=== PATIENT | female | born 2000 | race Caucasian/White ===

== ENCOUNTER 2020-12-21 11:04 | Emergency (ER) | payer OTHER ==
[~2020-12-21 11:04] MED LIST: MUCINEX 600MG600 MG PO; TESSALON PERLE100 MG PO
[2020-12-21 13:56] LABS: BASOPHIL 0.8 % (0-2); EOSINOPHIL 1.4 % (0-5); HCT 40.9 % (37.0-47.0); MCH 26.9 pg (25.0-31.0); MCHC 31.8 g/dL (32.0-36.0); MCV 84.5 fL (78.0-100.0); MONOCYTE 7.7 % (0-12); MPV 9.9 fL (6.0-9.5); NEUTROPHIL 58.8 % (41-80); NRBC 0; PLT 325 K/uL (150-400); RBC 4.84 M/uL (4.20-5.40); RDW 12.8 % (11.5-14.0); WBC 9.3 K/uL (4.0-10.5)
[2020-12-21 13:58] LABS: BILIRUBIN NEGATIVE (NEGATIVE); BLOOD NEGATIVE Ery/uL (NEGATIVE); CLARITY CLEAR (CLEAR); COLOR YELLOW (YELLOW); GLUCOSE (U) 3+ mg/dL (NORMAL); LEUKOCYTES NEGATIVE Leu/uL (NEGATIVE); NITRITE NEGATIVE (NEGATIVE); PROTEIN NEGATIVE (NEGATIVE); pH 6.5 (5.0-9.0)
[2020-12-21 14:13] LABS: ECSTASY (MDMA) NEGATIVE (NEGATIVE); MARIJUANA (THC) NEGATIVE (NEGATIVE); METHADONE NEGATIVE (NEGATIVE)
[2020-12-21 14:14] LABS: AMPHETAMINES NEGATIVE (NEGATIVE); BARBITURATES NEGATIVE (NEGATIVE); OPIATES NEGATIVE (NEGATIVE); OXYCODONE NEGATIVE (NEGATIVE)
[2020-12-21 14:15] LABS: BUN/CREAT RATIO (CALC) 21.8 RATIO; CREATININE 0.55 mg/dL (0.51-0.95); POTASSIUM 3.7 mmol/L (3.5-5.1)
== END 2020-12-21 15:05 | disposition home or self-care (01) ==
LOC: FER 11:04
PROVIDERS: Nurse Practitioner Family
DX: R04.0 Epistaxis (principal); R51.9 Headache, unspecified; I10 Essential (primary) hypertension; F41.9 Anxiety disorder, unspecified; F32.9 Major depressive disorder, single episode, unspecified; Z79.899 Other long term (current) drug therapy; Z90.09 Acquired absence of other part of head and neck
CPT/HCPCS: 36415; 80048; 80305; 81003; 85025; 99284